=== PATIENT | male | born 2000 | race American Indian/Alaskan Native ===

== ENCOUNTER 2020-07-05 | Emergency (ER) | payer MEDICAID ==
[2020-07-05 00:18] VITALS: BP 106/72
--- NOTE | 2020-07-05 00:24 | Emergency Department Report ---
ED General Adult HPI - General Chief complaint: Dyspnea/Respdistress Stated complaint: HEADACHE;MALENA Time Seen by Provider: 07/05/20 00:22 Source: patient Mode of arrival: Ambulatory Limitations: No Limitations - History of Present Illness Initial comments: Coumadin 11 Coumadin (department complaining of possibly coming in contact with Covid having a cough and some shortness of breath that is accompanied by a dull headache off and on. Reports no hemoptysis no hematemesis hematochezia, no fever, chills, sweats, no loss of vision, no blurred vision, no head trauma. -: Gradual, days(s) (2-3) Consistency: constant Improves with: none Worsens with: none Associated Symptoms: cough, headaches. denies: confusion, chest pain, loss of appetite, malaise, nausea/vomiting, syncope, weakness ED Review of Systems ROS: Stated complaint: HEADACHE;MALENA Other details as noted in HPI Comment: All other systems reviewed and negative ED Past Medical Hx - Past Medical History Previous Medical History?: No - Surgical History Past Surgical History?: No - Social History Smoking Status: Never Smoker Substance Use Type: None ED Physical Exam - General Limitations: No Limitations General appearance: alert, in no apparent distress - Head Head exam: Present: atraumatic, normocephalic - Eye Eye exam: Present: normal appearance, PERRL, EOMI Pupils: Present: normal accommodation - ENT ENT exam: Present: mucous membranes moist - Neck Neck exam: Present: normal inspection, full ROM - Respiratory Respiratory exam: Present: normal lung sounds bilaterally. Absent: respiratory distress - Cardiovascular Cardiovascular Exam: Present: regular rate, normal rhythm. Absent: systolic murmur, diastolic murmur, rubs, gallop - GI/Abdominal GI/Abdominal exam: Present: soft, normal bowel sounds - Rectal Rectal exam: Present: deferred - Extremities Exam Extremities exam: Present: normal inspection, normal capillary refill - Back Exam Back exam: Present: normal inspection. Absent: CVA tenderness (R), CVA tenderness (L) - Neurological Exam Neurological exam: Present: alert, oriented X3, CN II-XII intact, normal gait - Psychiatric Psychiatric exam: Present: normal affect, normal mood - Skin Skin exam: Present: warm, dry, intact, normal color. Absent: rash ED Course Vital Signs 07/05/20 00:16 Temperature 97.5 F L Pulse Rate 64 Respiratory 18 Rate Blood Pressure 106/72 O2 Sat by Pulse 100 Oximetry ED Medical Decision Making - Radiology Data Radiology results: report reviewed X-ray shows no acute processes - Medical Decision Making This patient presents with acute cough, most consistent with nonlife-threatening illness. Differential diagnosis includes a host of issues including acid reflux, medications, bronchitis, asthma, hyperreactive. Presentation not consistent with acute bacterial pneumonia, influenza, asthma, transient airway hyperresponsiveness. Presentation not consistent with chronic causes of cough (including GERD, asthma, postnasal discharge, medication side effect, CHF, lung cancer or mass). Normal chest Plan: , supportive care, reassess This patient presents with lower respiratory symptoms concerning for viral syndrome including flu. Patient does not meet criteria for COVID-19. Doubt pneumonia, sepsis or other serious bacterial infection or acute emergent condition. Is otherwise well- appearing with acceptable vitals and reassuring physical examination and is safe to be discharged home. Patient lacks serious medical comorbidities that would require admission. Patient is nontoxic and although symptomatic otherwise safe to go home. Will provide strict return precautions and instructions on self isolation/quarantine and anticipatory guidance. Critical care attestation.: If time is entered above; I have spent that time in minutes in the direct care of this critically ill patient, excluding procedure time. ED Disposition Clinical Impression: Cough, Cephalgia Disposition: DC-01 TO HOME OR SELFCARE Is pt being admited?: No Does the pt Need Aspirin: No Condition: Stable Instructions: Cough, Adult, [id number], Cool Mist Vaporizer, General Headache Without Cause, [id number], COVID-19, Infection Prevention in the Home, COVID- 19 Frequently Asked Questions Referrals: PRIMARY CARE, [Primary Care Provider] - 3-5 Days
--- NOTE | 2020-07-05 00:48 | XRay Report ---
CHEST 2 VIEWS INDICATION / CLINICAL INFORMATION: sob. COMPARISON: None available. FINDINGS: SUPPORT DEVICES: None. HEART / MEDIASTINUM: No significant abnormality. LUNGS / PLEURA: Clear lungs. No significant pleural effusion. No pneumothorax. ADDITIONAL FINDINGS: No significant additional findings. IMPRESSION: 1. No acute abnormality of the chest. Signer Name: Joselo Reyes MD Signed: 07/05/2020 12:43 AM Workstation Name: [id number]
== END 2020-07-05 00:22 | disposition home or self-care (01) ==
LOC: ED
DX: R05 Cough (principal); R51.9 Headache, unspecified
CPT/HCPCS: 71046; 99283

== ENCOUNTER 2020-07-05 04:32 | Emergency (ER) | payer MEDICAID ==
[2020-07-05 04:56] VITALS: BP 100/70
== END 2020-07-05 06:45 | disposition left against medical advice (07) ==
LOC: ED 04:32
DX: R51.9 Headache, unspecified (principal); R06.00 Dyspnea, unspecified; Z53.21 Procedure and treatment not carried out due to patient leaving prior to being seen by health care provider